=== PATIENT | male | born 1975 | race Caucasian/White ===

== ENCOUNTER 2019-10-13 19:14 | Emergency (ER) | payer BC, OTHER ==
[~2019-10-13] VITALS: Ht 190.5 cm; Wt 102.1 kg
--- NOTE | 2019-10-13 21:24 | Diagnostic Imaging Report ---
EXAM: LOWER LEG RIGHT DATE: 10/13/2019 7:54 PM INDICATION: ^EDEMA, PAIN, PT HEARD "POPPING" NOISE ^[id number] ^2034 COMPARISON: None FINDINGS: Frontal and lateral views of the right tibia and fibula show no displaced fracture or dislocation. No focal bone lesion is seen. Soft tissues unremarkable. IMPRESSION: No acute bony abnormality. Signed by: Dr. Dakotah Carrera M.D. on 10/13/2019 9:22 PM
[2019-10-14 04:29] VITALS: BP 132/79
== END 2019-10-13 21:45 | disposition home or self-care (01) ==
LOC: ER 19:14
DX: S86.211A Strain of muscle(s) and tendon(s) of anterior muscle group at lower leg level, right leg, initial encounter (principal); Y93.68 Activity, volleyball (beach) (court); Y92.318 Other athletic court as the place of occurrence of the external cause